=== PATIENT | female | born 1980 | race Caucasian/White ===

== ENCOUNTER 2025-01-03 19:21 | Inpatient (IN) | payer MEDICAID, SELFPAY ==
[2025-01-03] VITALS (9 sets, daily range): BP systolic 107–127; BP diastolic 64–81; PULSE 71–80; RESP 12–21; TEMP 36.3–37.1; O2SAT 97–99; BMI 22.6; BMI 23.4
--- NOTE | 2025-01-03 19:47 | EKG12_ITS ---
Test Reason : CP Blood Pressure : */* mmHG Vent. Rate : 67 BPM Atrial Rate : 67 BPM P-R Int : 138 ms QRS Dur : 86 ms QT Int : 392 ms P-R-T Axes : 9 24 63 degrees QTcB Int : 414 ms Normal sinus rhythm Septal infarct , age undetermined T wave abnormality, consider anterior ischemia Abnormal ECG Confirmed by Joshua Pizano ([id number]), deputy editor in chief CHAPARRO RIVERA ([id number]) on 01/04/2025 10:24:26 AM Referred By: Confirmed By: Joshua Pizano
[2025-01-03] MEDS: Nitroglycerin SL (ED/IMG/CATH) 0.4 MG TABLET SL ×2 (19:53→20:07)
--- NOTE | 2025-01-03 20:00 | EKG12_ITS ---
Test Reason : REPEAT Blood Pressure : */* mmHG Vent. Rate : 75 BPM Atrial Rate : 75 BPM P-R Int : 110 ms QRS Dur : 80 ms QT Int : 394 ms P-R-T Axes : 22 26 72 degrees QTcB Int : 439 ms Sinus rhythm with short IA Septal infarct , age undetermined T wave abnormality, consider anterior ischemia Abnormal ECG Confirmed by Joshua Pizano ([id number]), metropolitan editor CHAPARRO RIVERA ([id number]) on 01/04/2025 10:24:44 AM Referred By: Confirmed By: Joshua Pizano
[2025-01-03] MEDS: HEPARIN/D5w 25,000 UNITS 25,000 UNITS/250 ML IV.SOLN. 9.5 UNITS CONT INF (20:02)
[2025-01-03] MEDS: Heparin Injection (Vial) 5,000 UNIT/ML VIAL 4000 UNIT IV (20:06)
--- NOTE | 2025-01-03 20:18 | RAD_ITS ---
PROCEDURE: CHEST 1 VIEW (PORTABLE) 01/03/2025 REASON FOR EXAM: CHEST PAIN TECHNIQUE: Frontal view of the chest. COMPARISON: None FINDINGS: Left chest pacer. Mild pulmonary vascular congestion. No focal consolidation. No pleural effusion or pneumothorax. Cardiac silhouette is within normal limits. No acute fractures. RAD/Chest 1 View (Portable) IMPRESSION: Mild pulmonary vascular congestion. No focal consolidation. Reading Location: [id number]
[2025-01-03 20:26] LABS: Hematocrit 36.2 % (37-47); Hemoglobin 11.9 g/dL (12.0-15.0); Immature Granulocytes Count 0.020 X10^3/uL (0.0-0.0); Mean Corp Hgb Conc 32.9 g/dL (32-36); Mean Corpuscular Volume 87.7 fL (81-99); Mean Platelet Vol. 9.7 fl (6.2-12.0); NRBC Flagged by Analyzer 0 % (0-5); Platelet Count 351 K/mm3 (150-450); RBC Distribution Width CV 14.5 % (11.6-14.6); RBC Distribution Width SD 46.8 fl (35.1-43.9); Red Blood Count 4.13 M/mm3 (4.2-5.4); White Blood Count 7.4 K/mm3 (4.4-11.0)
[2025-01-03 20:34] LABS: Anion Gap 12 (5-15); BUN 8 mg/dL (4-19); BUN/Creat Ratio 10.6 RATIO (10-20); Calcium,Total 9.2 mg/dL (7.6-11.0); Carbon Dioxide 22.7 mmol/L (21.0-32.0); Chloride 104 mmol/L (98-108); Estimated Creatinine Clearance 93.67 ml/min (50-250); Glucose 87 mg/dL (70-99); Potassium 3.7 mmol/L (3.3-5.1); Troponin T High Sensitivity 7 ng/L (<=14)
[2025-01-03 20:35] LABS: Partial Thromboplast Time 24.1 Seconds (24.1-36.2); Prothrombin Time (Protime)PT. 13.1 SECONDS (11.7-14.9)
--- NOTE | 2025-01-03 21:53 | ED.VIS.CHEST ---
HPI History of Present Illness Chief Complaint: Chest Pain Detail of Chief Complaint: Chest pressure midsternum similar to TN Informant: patient Onset/Context/Timing Onset: Today and Hours Activity at onset: sudden and light activity Timing: Continuous Quality: Positive for Heaviness, Pressure and - (After nitroglycerin slightly dull sensation.) Location: Substernal Current Severity: Mild Maximum Severity: Severe Relieved By: NTG Associated Symptoms: Positive for Nausea, Diaphoresis and Dyspnea; Negative for Vomiting, Cough, Fever, Lightheadedness, Acid Reflux or Palpitations Narrative Narrative: Patient is a 44-year-old woman. She has history of myocardial infarction. First TN occurred several years ago when she resided in [place]. She had a stent placed proximal LAD. She had an TN this past May. She was seen at [facility]. She pleasantly resides in [place]. She was in town participating in the [employer]. She developed chest pressure with nausea, diaphoresis and shortness of breath. Paramedics were called. She states this is similar to when she had her TN in [place]. The nitro helped her pain markedly. She did not receive aspirin by EMS. When nurse offered aspirin to her that was ordered she informed the nurse that she received aspirin at the first-aid tent. As I was exiting the room she did follow-up pressure sensation again. Repeat EKG was obtained. Prehospital EKG reveals evidence of a prior anterior TN and flipped T waves inferiorly. There are no old EKGs for comparison. Patient is not compliant with her aspirin. She is taking Plavix. She denies black or maroon-colored stool. She denies bright red blood per rectum. She denies bruising easily. Patient informed that she has an ischemic cardiomyopathy requiring ACID. Prior Similar Symptoms: Yes and With Prior TN Recent Illness/Hospitalization: No CVD Risk Factors: Negative for Hypertension, Diabetes or Family History 1' </=55 PE Risk Factors: Positive for Recent Travel/Surgery; Negative for Recent Immobilization, Prior DVT or PE, Cancer or OCP + Smoking + >/=35 TAD Risk Factors: Negative for Marfan's Syndrome, Hypertension or Family History [facility] Medical History ICD (implantable cardioverter-defibrillator) in place Myocardial infarct Home Medications ?Medication ?Instructions ?Recorded ?Last Taken ?Type atorvastatin 40 mg tablet 40 mg PO DAILY 01/03/25 Unknown History clonazepam 0.5 mg disintegrating PO 01/03/25 Unknown History tablet clopidogrel 75 mg tablet 75 mg PO DAILY 01/03/25 Unknown History empagliflozin 10 mg tablet 10 mg PO DAILY 01/03/25 Unknown History (Jardiance) escitalopram oxalate 10 mg tablet 10 mg PO DAILY 01/03/25 Unknown History Allergy/AdvReac Type Severity Reaction Status Date / Time No Known Allergies Allergy Verified 01/03/25 19:26 Social History Smoking Status: Former smoker ROS ROS ED Constitutional Constitutional ED: Denies chills, fever(s), subjective or sweats Eyes Eyes: Reports none ENT ENT ED: Denies ear pain or rhinorrhea Cardiovascular Cardiovascular: Reports as per HPI; Denies orthopnea or paroxysmal nocturnal dyspnea Respiratory/Chest Respiratory/Chest: Reports dyspnea; Denies cough, dyspnea on exertion, orthopnea or paroxysmal nocturnal dyspnea Gastrointestinal Gastrointestinal: Reports nausea; Denies abdominal pain, diarrhea, melena or vomiting Musculoskeletal Musculoskeletal: Denies arthralgias, myalgias or neck pain Integumentary Denies rash Neurologic Neurologic: Denies headache(s) or paresthesias Psychiatric Psychiatric: Reports anxiety; Denies depression or suicidal ideation Endocrine Endocrinology: Denies cold intolerance or heat intolerance Hematologic/Lymphatic Hematologic/Lymphatic: Denies easy bleeding or easy bruising EXAM Physical Exam Const Vital Signs: 01/03/25 19:23 01/03/25 19:53 01/03/25 20:00 Temperature 98.7 F Temperature Source Oral Pulse Rate 80 73 71 Respiratory Rate 16 13 Respiratory Effort Blood Pressure 126/75 H 127/80 H 115/81 H Blood Pressure Mean 92 92 Pulse Ox 98 99 Oxygen Delivery Method Room Air 01/03/25 20:07 01/03/25 20:10 01/03/25 20:10 Temperature Temperature Source Pulse Rate 74 Respiratory Rate Respiratory Effort Normal Non-Labored Blood Pressure 115/81 H Blood Pressure Mean Pulse Ox Oxygen Delivery Method Room Air 01/03/25 21:00 Temperature Temperature Source Pulse Rate 71 Respiratory Rate 18 Respiratory Effort Blood Pressure 107/69 Blood Pressure Mean 81 Pulse Ox 99 Oxygen Delivery Method Positive well nourished and well developed General Appearance ED: well developed and NAD; Negative for pallor HEENT Reports moist mucous membranes normocephalic and atraumatic Eyes PERRL and EOMs intact bilaterally General Eye ED: Negative for pale conjunctiva or scleral icterus Neck no lymphadenopathy, supple and no JVD Resp normal respiratory effort and clear to auscultation bilaterally Cardio regular rate, regular rhythm, S1 normal heart sound, S2 normal heart sound and no murmurs Peripheral Pulses: pulses 2+ throughout GI normal to inspection, nondistended, normoactive bowel sounds, soft to palpation, non-tender, non-distended and no masses; Negative for hepatosplenomegaly Back/Spine no CVA tenderness and no thoracic nor lumbar tenderness Extremity normal to inspection General Extremety ED: Negative for edema or pulses abnormal General Extremity: Negative for edema or pulses abnormal Neuro oriented x3 and CN's II-XII intact bilaterally Sensorium / Orientation: awake and alert Psych mental status grossly normal Skin no rashes or lesions noted and no wounds General Skin Exam: Negative for jaundice or pallor Heart Score History: Moderately Suspicious ECG: Nonspecific Repolarization Age: >45 - <65 years Risk Factors: 1 or 2 Risk Factors Score: 4 MDM MDM MDM Narrative Medical decision making narrative: EKG that was obtained in the emergency department when patient pain had essentially resolved revealed a normal sinus rhythm rate of 67 with a prior septal/anterior TN. QRS duration is 86 ms. QT duration 292 ms. [place] is normal. T waves in the inferior leads are upright. Repeat EKG was obtained since patient developed chest pressure and was dyspneic. This is unchanged from the first. Lab Data Labs: Laboratory Results - last 24 hr 01/03/25 19:05 WBC 7.4 RBC 4.13 L Hgb 11.9 L Hct 36.2 L MCV 87.7 MCH 28.8 MCHC 32.9 RDW Std Deviation 46.8 H RDW Coeff of Woodrow 14.5 Plt Count 351 MPV 9.7 Immature Gran % (Auto) 0.300 Neut % (Auto) 53.8 Lymph % (Auto) 30.6 [place] % (Auto) 12.0 H Eos % (Auto) 2.6 Baso % (Auto) 0.7 Absolute Neuts (auto) 4.0 Absolute Lymphs (auto) 2.25 Nucleated RBC % 0 PT 13.1 INR 1.0 APTT 24.1 Sodium 138 Potassium 3.7 Chloride 104 Carbon Dioxide 22.7 Anion Gap 12 BUN 8 Creatinine 0.71 Estim Creat Clear Calc 93.67 Est GFR (MDRD) Non-Af 106 BUN/Creatinine Ratio 10.6 Glucose 87 Calcium 9.2 Troponin T High Sens 7 Radiography Chest X-Ray - ED: Read by ED Physician (Slight hyperaeration. Cardiac silhouette size normal. Some minimal chronic changes. No evidence of infiltrate or effusion. No evidence of pneumothorax. Hilum is unremarkable. Osseous structures are unremarkable.) Diagnostic Testing: Clinical Impression(s) from Imaging Studies Chest X-Ray 01/03/25 20:18 IMPRESSION: Mild pulmonary vascular congestion. No focal consolidation. Reading [id number] Management Discussion w/another healthcare provider: Hospitalist (Dr. Linwood Choudhury is presently seeing patient. Admit PCU) and Fish Farm Manager (Dr. Joshua Pizano was on. He agrees that she likely needs a cardiac catheterization. He requested 1 intra Nitropaste. Agrees with the heparin.) Treatment and Re-Evaluation :: In light of history of coronary disease with stent proximal LAD dynamic EKG changes with pain patient was anticoagulated with heparin. She received nitro for her recurrent chest pressure. Hospitalist was paged for admission. If hospitalist wishes for me to speak with silversmith apprentice I will. Comments:: Case was discussed Dr. Choudhury. He requested I speak with the silversmith apprentice. Cardiology was placed on page. Of note patient's pain essentially resolved with nitro that was administered in the emergency department. Discharge Plan Triage Chief Complaint: Chest Pain ED Provider: Jeremy Edwards Dx/Rx/DC Orders Clinical Impression: ACS (acute coronary syndrome), Ischemic cardiomyopathy, Implantable cardioverter-defibrillator (ICD) in situ Primary Care Provider: HA BURGESS Referrals: HA BURGESS [Other] Print Language: Upper Sorbian Disposition Disposition: Acute Care Hospital [facility]
--- NOTE | 2025-01-03 22:12 | PCM.HP.STD ---
HPI - General General Date of Admission: 01/03/25 Date of Service: 01/03/25 Chief Complaint: Chest pain HPI Narrative GALLO MORALES, is a 44 F who presents to the emergency room with chief complaint of chest pain. Onset of symptoms began approximately 30 minutes prior to arrival when she was working at the [facility] and developed chest pain and was transferred by squad to our facility. Patient has significant past medical history of coronary artery disease status post [place] x 2 in the last was in May which occurred in [place] and feels similar to how she is feeling now. Her first [place] required a stent of the LAD lesion which she states was almost 100% blocked. After her last heart attack in May she did not require further intervention after she had a catheterization done in [place]. Upon arrival her chest pain was relieved by nitroglycerin. Of note her EKG showed inverted T waves in lateral leads that were flipped back up after she received nitroglycerin. After the ER physician evaluated her she developed some subsequent chest pain while still in the emergency room and was given another dose of nitroglycerin to which she responded as well. Initial laboratory studies reveal white blood cell count of 7.4, hemoglobin 11.9, hematocrit 36.2, platelets 351, sodium 138, potassium 3.7, chloride 104, bicarb 22.7, BUN 8, creatinine 0.7, INR 1.0, troponin initial test was 7 and while EKG did show changes and T wave inversions there were no ST elevations. Patient quit smoking on her last [place] in May. Due to her significant cardiac history ER physician spoke with equal employment opportunity officer who recommended patient be prepared for heart catheterization. She will be admitted to the progressive care unit and she is full code. [facility] Medical History ICD (implantable cardioverter-defibrillator) in place Myocardial infarct Home Medications ?Medication ?Instructions ?Recorded ?Last Taken ?Type atorvastatin 40 mg tablet 40 mg PO DAILY 01/03/25 01/03/25 History clopidogrel 75 mg tablet 75 mg PO DAILY 01/03/25 01/03/25 History empagliflozin 10 mg tablet 10 mg PO DAILY 01/03/25 01/03/25 History (Jardiance) escitalopram oxalate 10 mg tablet 10 mg PO DAILY 01/03/25 01/03/25 History spironolactone 25 mg tablet 25 mg PO DAILY 01/03/25 01/03/25 History Allergy/AdvReac Type Severity Reaction Status Date / Time No Known Allergies Allergy Verified 01/03/25 19:26 Social History Smoking Status: Former smoker ROS Constitutional Constitutional: Reports night sweats; Denies chills or fever(s) Eyes Eyes: Denies blurry vision ENT HEENT: Denies abnormal hearing Cardiovascular Cardiovascular: Reports chest pain; Denies edema, palpitations or syncope Respiratory/Chest Respiratory/Chest: Denies cough Gastrointestinal Gastrointestinal: Denies abdominal pain Genitourinary Genitourinary: Denies dysuria Musculoskeletal Musculoskeletal: Denies back pain Integumentary Integumentary: Denies dry skin Neurologic Neurologic: Denies abnormal gait Psychiatric Psychiatric: Denies anxiety Vital Signs Vital Signs Vital Signs: 01/03/25 19:23 01/03/25 19:53 01/03/25 20:00 Temperature 98.7 F Temperature Source Oral Pulse Rate 80 73 71 Respiratory Rate 16 13 Respiratory Effort Blood Pressure 126/75 H 127/80 H 115/81 H Blood Pressure Mean 92 92 Pulse Ox 98 99 Oxygen Delivery Method Room Air 01/03/25 20:07 01/03/25 20:10 01/03/25 20:10 Temperature Temperature Source Pulse Rate 74 Respiratory Rate Respiratory Effort Normal Non-Labored Blood Pressure 115/81 H Blood Pressure Mean Pulse Ox Oxygen Delivery Method Room Air 01/03/25 21:00 01/03/25 21:45 01/03/25 22:00 Temperature Temperature Source Pulse Rate 71 73 79 Respiratory Rate 18 20 H 21 H Respiratory Effort Blood Pressure 107/69 108/70 121/67 H Blood Pressure Mean 81 83 85 Pulse Ox 99 98 98 Oxygen Delivery Method Weight Weight: 140 lb Body Mass Index (BMI) 22.6 Physical Exam Const oriented x3 General Appearance: cooperative and well developed HEENT normocephalic and head/scalp atraumatic Eyes PERRL Neck no lymphadenopathy Lymph Lymphatic: no lymphadenopathy noted Resp normal respiratory effort, normal air movement and clear to auscultation bilaterally Cardio regular rate, regular rhythm, S1 normal heart sound, S2 normal heart sound and no murmurs GI normal to inspection, nondistended, normoactive bowel sounds, soft to palpation and non-tender Extremity normal capillary refill Skin General Skin Exam: no breakdown Neuro no focal motor deficits and no sensory deficits noted Psych thought process normal Appearance: appropriate Results Lab / Micro Data 01/03/25 19:05 01/03/25 19:05 Labs: Laboratory Results - last 24 hr 01/03/25 19:05: WBC 7.4, RBC 4.13 L, Hgb 11.9 L, Hct 36.2 L, MCV 87.7, MCH 28.8, MCHC 32.9, RDW Std Deviation 46.8 H, RDW Coeff of Woodrow 14.5, Plt Count 351, MPV 9.7, Immature Gran % (Auto) 0.300, Neut % (Auto) 53.8, Lymph % (Auto) 30.6, [place] % (Auto) 12.0 H, Eos % (Auto) 2.6, Baso % (Auto) 0.7, Absolute Neuts (auto) 4.0, Absolute Lymphs (auto) 2.25, Nucleated RBC % 0, PT 13.1, INR 1.0, APTT 24.1, Sodium 138, Potassium 3.7, Chloride 104, Carbon Dioxide 22.7, Anion Gap 12, BUN 8, Creatinine 0.71, Estim Creat Clear Calc 93.67, Est GFR (MDRD) Non-Af 106, BUN/Creatinine Ratio 10.6, Glucose 87, Calcium 9.2, Troponin T High Sens 7 Imaging Radiology Impression Chest X-Ray 01/03/25 20:18 IMPRESSION: Mild pulmonary vascular congestion. No focal consolidation. Reading [id number] Assessment & Plan Assessment/Plan (1) Implantable cardioverter-defibrillator (ICD) in situ: (2) Ischemic cardiomyopathy: (3) ACS (acute coronary syndrome): PLAN: Plan 1 acute coronary syndrome?admit patient to progressive care unit, consult cardiology, prepare patient for possible heart catheterization in the morning continue cycling cardiac enzymes and repeat CBC BMP and coag panel in the a.m. patient will be made n.p.o. at midnight, will add nitroglycerin per routine protocol, oxygen as needed and patient already did receive aspirin earlier today. 2. DVT prophylaxis?SCDs for now 3. CODE STATUS full code verified Charges/Coding Visit Charges Inpatient E&M: 83530 Init Hosp L2
[2025-01-03 22:15] LABS: Troponin T High Sens 2 HR 6 ng/L (<=14)
[2025-01-03] MEDS: Nitroglycerin Oint 1 INCH PACKET TD (22:22)
--- NOTE | 2025-01-03 23:53 | EKG12_ITS ---
Test Reason : CP ADMISSION Blood Pressure : */* mmHG Vent. Rate : 71 BPM Atrial Rate : 71 BPM P-R Int : 128 ms QRS Dur : 92 ms QT Int : 380 ms P-R-T Axes : 30 50 55 degrees QTcB Int : 412 ms Normal sinus rhythm Septal infarct , age undetermined T wave abnormality, consider anterolateral ischemia Abnormal ECG When compared with ECG of 03-Jan-2025 19:50, MANUAL COMPARISON REQUIRED DATA IS UNCONFIRMED Confirmed by Joshua Pizano ([id number]), loan expeditor CHAPARRO RIVERA ([id number]) on 01/04/2025 10:16:58 AM Referred By: Confirmed By: Joshua Pizano
[2025-01-03 23:55] LABS: Troponin T High Sens 4 HR 6 ng/L (<=14)
[2025-01-04] MEDS: 0.9% Normal Saline (1000mL) 1,000 ML 15 ML IV (00:34)
[2025-01-04 03:36] VITALS: BP 112/73; PULSE 66; RESP 16; TEMP 36.7; O2SAT 97
[2025-01-04 05:52] LABS: Hematocrit 39.6 % (37-47); Hemoglobin 13.0 g/dL (12.0-15.0); Immature Granulocytes Count 0.020 X10^3/uL (0.0-0.0); Mean Corp Hgb Conc 32.8 g/dL (32-36); Mean Corpuscular Volume 88.0 fL (81-99); Mean Platelet Vol. 9.6 fl (6.2-12.0); NRBC Flagged by Analyzer 0 % (0-5); Platelet Count 335 K/mm3 (150-450); RBC Distribution Width CV 14.5 % (11.6-14.6); RBC Distribution Width SD 46.5 fl (35.1-43.9); Red Blood Count 4.50 M/mm3 (4.2-5.4); White Blood Count 7.4 K/mm3 (4.4-11.0)
--- NOTE | 2025-01-04 05:55 | EKG12_ITS ---
Test Reason : AM EKG Blood Pressure : */* mmHG Vent. Rate : 63 BPM Atrial Rate : 63 BPM P-R Int : 144 ms QRS Dur : 88 ms QT Int : 404 ms P-R-T Axes : 46 20 59 degrees QTcB Int : 413 ms Normal sinus rhythm Septal infarct , age undetermined T wave abnormality, consider anterior ischemia Abnormal ECG When compared with ECG of 03-Jan-2025 23:39, MANUAL COMPARISON REQUIRED DATA IS UNCONFIRMED Confirmed by Joshua Pizano ([id number]), newspaper or periodical editor CHAPARRO RIVERA ([id number]) on 01/04/2025 10:16:14 AM Referred By: Confirmed By: oJshua Pizano
[2025-01-04 05:56] LABS: Prothrombin Time (Protime)PT. 13.7 SECONDS (11.7-14.9)
[2025-01-04 06:29] LABS: Anion Gap 10 (5-15); BUN 8 mg/dL (4-19); BUN/Creat Ratio 11.4 RATIO (10-20); Calcium,Total 9.1 mg/dL (7.6-11.0); Carbon Dioxide 23.9 mmol/L (21.0-32.0); Chloride 107 mmol/L (98-108); Estimated Creatinine Clearance 93.67 ml/min (50-250); Glucose 96 mg/dL (70-99); Magnesium 2.3 mg/dL (1.5-2.2); Potassium 4.0 mmol/L (3.3-5.1)
[2025-01-04 08:11] VITALS: O2SAT 98
--- NOTE | 2025-01-04 08:11 | PCM.CONS.C ---
Assessment & Plan Assessment/Plan (1) Ischemic cardiomyopathy: PLAN: Patient has a history of ejection fraction in the 25-30% range. She does have an ICD in place. ECG shows normal sinus rhythm with nonspecific anterior T wave changes there is no significant bundle branch block. The patient denies any signs or symptoms of congestive heart failure she is functional class I-II [place] [employer] classification for heart failure. She denies any lower extremity edema PND orthopnea she denies any syncope or near syncope. She has had no therapies from her ICD device since implant. (2) Implantable cardioverter-defibrillator (ICD) in situ: PLAN: Device is monitored through [place] char puller. (3) Chest pain: QUALIFIERS: Chest pain type: unspecified Qualified Code(s): R07.9 - Chest pain, unspecified PLAN: Patient's chest discomfort described as a indigestion type feeling with a pressure that radiates toward her right shoulder. This is similar but not nearly as intense as her initial event when she had the LAD stent placed in the time of her anterior wall infarct. It is almost identical to the event she had in May in [place]. That event led to a catheterization in [place] which did not show any progression of disease in fact she says all of her vessels were open including the stented segment of the LAD. Troponins were -6, 7, 6 on this admission. ECG does not show any evolution of T waves. The initial inverted T waves in the inferior leads were due to a limb lead reversal. PLAN: Plan 1. Recommend stress echocardiogram to evaluate the patient's ischemic burden. 2. If stress echo does not show any significant ischemia would recommend discharge and follow-up with her primary char puller when she returns to [place]. 3. Please make sure a copy of this consult goes with her if she leaves the hospital to go back to [place]. HPI Consult Data Date of Consult: 01/04/25 HPI Narrative Reason for Consultation: Chest pain with known coronary artery disease. HPI Narrative: GALLO MORALES, is a 44 F who presents with approximately 2-hour history of chest discomfort described as a mild pressure and indigestion type feeling. She reports this is very similar to what she originally felt back at the time of her LAD occlusion and anterior wall infarct 2-3 years ago. This was treated with stenting of the LAD. In May of this year she was seen in [place] for similar symptoms and both today's symptoms and those symptoms in [place] were less intense than those when she originally presented with the LAD occlusion. In [place] she was told she had an infarct but yet the catheterization did not show any occlusions. The catheterization was actually not done in [place] she went home to [place] and had the catheterization done which is where her original stent was placed. The patient does have an ICD in place due to an LV ejection fraction estimated in the 25-30% range. The patient denies any therapies from her ICD device. It is a single-lead device. This is managed through her char puller in [place]. Since admission the patient's had no recurrence of her symptoms. Her ECG actually did not show evolving T wave changes the initial ECG done in the field the limb leads were reversed with inverted T waves in inferior leads subsequent all ECGs have been done here in the hospital show upright T waves with upright QRS's in the inferior leads. Her anterior T wave changes are chronic and do not evolve. Cardiac isoenzymes are negative x 3 sets at 6, 7, and 6. 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 The patient is amenable to doing a stress echocardiogram. [facility] Medical History ICD (implantable cardioverter-defibrillator) in place Myocardial infarct Home Medications ?Medication ?Instructions ?Recorded ?Last Taken ?Type atorvastatin 40 mg tablet 40 mg PO DAILY 01/03/25 01/03/25 History clopidogrel 75 mg tablet 75 mg PO DAILY 01/03/25 01/03/25 History empagliflozin 10 mg tablet 10 mg PO DAILY 01/03/25 01/03/25 History (Jardiance) escitalopram oxalate 10 mg tablet 10 mg PO DAILY 01/03/25 01/03/25 History spironolactone 25 mg tablet 25 mg PO DAILY 01/03/25 01/03/25 History Allergy/AdvReac Type Severity Reaction Status Date / Time No Known Allergies Allergy Verified 01/03/25 19:26 Social History Smoking Status: Former smoker ROS Constitutional Constitutional: Reports as per HPI Eyes Eyes: Reports systems reviewed and no addt'l complaints, except as documented ENT HEENT: Reports systems reviewed and no addt'l complaints, except as documented Cardiovascular Cardiovascular: Reports as per HPI Respiratory/Chest Respiratory/Chest: Reports as per HPI Gastrointestinal Gastrointestinal: Reports as per HPI Genitourinary Genitourinary: Reports systems reviewed and no addt'l complaints, except as documented Musculoskeletal Musculoskeletal: Reports systems reviewed and no addt'l complaints, except as documented Integumentary Integumentary: Reports systems reviewed and no addt'l complaints, except as documented Neurologic Neurologic: Reports systems reviewed and no addt'l complaints, except as documented Psychiatric Psychiatric: Reports systems reviewed and no addt'l complaints, except as documented Endocrine Endocrinology: Reports systems reviewed and no addt'l complaints, except as documented Hematologic/Lymphatic Hematologic/Lymphatic: Reports systems reviewed and no addt'l complaints, except as documented Allergic/Immunologic Allergic/Immunologic: Reports systems reviewed and no addt'l complaints, except as documented Physical Exam Const alert and oriented x3 HEENT normocephalic Eyes EOMs intact bilaterally Neck no JVD and no carotid bruits Chest Chest: left pectoral incision Resp normal respiratory effort and clear to auscultation bilaterally Cardio Rate: regular rate Rhythm: regular rhythm Heart Sounds: S1 normal and S2 normal; Negative for click, gallop or murmur Extremity no pedal edema Neuro Neuro Narrative: Alert and oriented x 3 Psych Psych Narrative: Patient with mildly pressured speech. Charges/Coding Visit Charges Inpatient E&M: 23788 Init Hosp L3 Objective Data Vital Signs: Vital Signs Temp Pulse Resp BP Pulse Ox O2 Del Method 98.1 F 66 16 112/73 97 Room Air 01/04/25 03:36 01/04/25 03:36 01/04/25 03:36 01/04/25 03:36 01/04/25 03:36 01/04/25 03:36 Oxygen Delivery Method Room Air Weight: 145 lb 4.554 oz Body Mass Index (BMI) 23.4 Lab / Micro Data Attestation: I reviewed the patient's lab results. 01/04/25 05:15 01/04/25 05:15 Labs: Laboratory Results - last 24 hr 01/03/25 19:05: WBC 7.4, RBC 4.13 L, Hgb 11.9 L, Hct 36.2 L, MCV 87.7, MCH 28.8, MCHC 32.9, RDW Std Deviation 46.8 H, RDW Coeff of Woodrow 14.5, Plt Count 351, MPV 9.7, Immature Gran % (Auto) 0.300, Neut % (Auto) 53.8, Lymph % (Auto) 30.6, Bowie % (Auto) 12.0 H, Eos % (Auto) 2.6, Baso % (Auto) 0.7, Absolute Neuts (auto) 4.0, Absolute Lymphs (auto) 2.25, Nucleated RBC % 0, PT 13.1, INR 1.0, APTT 24.1, Sodium 138, Potassium 3.7, Chloride 104, Carbon Dioxide 22.7, Anion Gap 12, BUN 8, Creatinine 0.71, Estim Creat Clear Calc 93.67, Est GFR (MDRD) Non-Af 106, BUN/Creatinine Ratio 10.6, Glucose 87, Calcium 9.2, Troponin T High Sens 7 01/03/25 21:20: Troponin T Hi Sens 2 Hr 6 01/03/25 23:21: Troponin T Hi Sens 4Hr 6 01/04/25 05:15: WBC 7.4, RBC 4.50, Hgb 13.0, Hct 39.6, MCV 88.0, MCH 28.9, MCHC 32.8, RDW Std Deviation 46.5 H, RDW Coeff of Woodrow 14.5, Plt Count 335, MPV 9.6, Immature Gran % (Auto) 0.300, Neut % (Auto) 44.4 L, Lymph % (Auto) 39.2, Bowie % (Auto) 11.0 H, Eos % (Auto) 3.9, Baso % (Auto) 1.2 H, Absolute Neuts (auto) 3.3, Absolute Lymphs (auto) 2.89, Nucleated RBC % 0, PT 13.7, INR 1.0, Sodium 141, Potassium 4.0, Chloride 107, Carbon Dioxide 23.9, Anion Gap 10, BUN 8, Creatinine 0.71, Estim Creat Clear Calc 93.67, Est GFR (MDRD) Non-Af 106, BUN/Creatinine Ratio 11.4, Glucose 96, Calcium 9.1, Phosphorus 3.2, Magnesium 2.3 H Rhythm Strip Rhythm Strip: Sinus Rhythm Rate: 65 Cardiology Labs/Tests 01/03/25 19:05: WBC 7.4, RBC 4.13 L, Hgb 11.9 L, Hct 36.2 L, MCV 87.7, MCH 28.8, MCHC 32.9, Plt Count 351, MPV 9.7, Immature Gran % (Auto) 0.300, Neut % (Auto) 53.8, Lymph % (Auto) 30.6, Bowie % (Auto) 12.0 H, Eos % (Auto) 2.6, Baso % (Auto) 0.7, Absolute Neuts (auto) 4.0, Nucleated RBC % 0, PT 13.1, INR 1.0, APTT 24.1, Sodium 138, Potassium 3.7, Chloride 104, Carbon Dioxide 22.7, Anion Gap 12, BUN 8, Creatinine 0.71, Est GFR (MDRD) Non-Af 106, BUN/Creatinine Ratio 10.6, Glucose 87, Calcium 9.2 01/04/25 05:15: WBC 7.4, RBC 4.50, Hgb 13.0, Hct 39.6, MCV 88.0, MCH 28.9, MCHC 32.8, Plt Count 335, MPV 9.6, Immature Gran % (Auto) 0.300, Neut % (Auto) 44.4 L, Lymph % (Auto) 39.2, Bowie % (Auto) 11.0 H, Eos % (Auto) 3.9, Baso % (Auto) 1.2 H, Absolute Neuts (auto) 3.3, Nucleated RBC % 0, PT 13.7, INR 1.0, Sodium 141, Potassium 4.0, Chloride 107, Carbon Dioxide 23.9, Anion Gap 10, BUN 8, Creatinine 0.71, Est GFR (MDRD) Non-Af 106, BUN/Creatinine Ratio 11.4, Glucose 96, Calcium 9.1, Phosphorus 3.2, Magnesium 2.3 H Rhythm: EKG: ECHO: Stress Test: Cardiac Cath: PCI: CT Surgery: Holter monitor: EPS: PPM: CXR: Chest CT Scan: Radiography Diagnostic Testing: Radiology Impression Chest X-Ray 01/03/25 20:18 IMPRESSION: Mild pulmonary vascular congestion. No focal consolidation. Reading [id number] Z[facility]AIDA Risk Score for UA/STEMI Assesmment (YES = 1) Risk Stratification Applicable: Yes Age > or = 65: No > or = 3 CAD risk factors (HTN, Hypercholesterolemia, Diabetes, family hx, current smoker): No Known CAD (Stenosis > or = 50%): Yes ASA used in past 7 days: No Severe angina (> or = 2 episodes in 24 hrs): Yes EKG ST change > or = 0.5mm: No Positive cardiac markers: No Score ZORAIDA Risk Score of mortality/ recurrent ischemic event over the next 14 days: 2 = 8.3% - Low Risk
--- NOTE | 2025-01-04 08:22 | STEWCON_ITS ---
Reason For Study Reason For Study: CHEST PAIN Stress Results Protocol: Ben Protocol WITH DEFINITY Maximum Predicted HR: 175 bpm Target HR: 149 bpm % Maximum Predicted HR: 89 % DurationHeart Rate Stage (mm:ss) (bpm) BP Comment BASELINE 64 100/743CC DEFINITY STAGE 1 3:00 102 120/80 STAGE 2 3:00 115 118/80 STAGE 3 2:00 155 / RECOVERY 82 118/70 Stress Duration: 8:00 mm:ss Maximum Stress HR: 155 bpm Baseline Echocardiogram Findings Severe LV systolic dysfunction. Moderately dilated left ventricular cavity. Estimated LVEF 20-25%. ICD or pacer leads identified within the right ventricle. Stress Echo Wall motion Data Resting WM Intermediate WM Stress WM Resting Wall Motion Wall Motion Stress Severe LV systolic dysfunction. Mid to distal anterior akinesis. Apical Generalized hypokinesis with severe akinesis. anterior apical hypokinesis. EKG Data Sinus rhythm with poor R wave progression across anterior precordial leads suggestive of previous infarct. No ischemic ECG changes noted. MMode/2D Measurements & Calculations LVIDd: 6.3 cm EDV(MOD-sp4): 170.7 ml SV(MOD-sp4): 64.6 ml ESV(MOD-sp4): 106.2 ml EF(MOD-sp4): 37.8 % ECHO/Stress Test Echo W/Contrast Interpretation Summary Good exercise tolerance. Walked 8 minutes on the treadmill according to the Bru ce protocol. No ischemic ECG changes noted. Severe LV systolic dysfunction at rest. Worsening of the mid to distal anterior wall and apex post exercise, suggestive of ischemia. Ordering Physician: oJshua Pizano Referring Physician: JOSHUA PIZANO Performed By: Hayley Mills, VALENTINA, RVT
[2025-01-04 08:31] VITALS: BP 114/76; PULSE 66; RESP 14; TEMP 37.1; O2SAT 99
[2025-01-04 08:49] VITALS: O2SAT 99
[2025-01-04 09:29] LABS: Partial Thromboplast Time 75.3 Seconds (24.1-36.2)
--- NOTE | 2025-01-04 10:11 | CASEMGMT ---
Dx: Acute coronary syndrome LACE: 1 6-Clicks: 24 Medical record reviewed and patient evaluated for identification of discharge planning needs. Based on this review, at this time criteria are not present to indicate a need for discharge planning. Will remain available to assist with discharge planning needs as identified or requested.
[2025-01-04 12:17] VITALS: BP 119/69; PULSE 73; RESP 16; TEMP 36.3; O2SAT 98
--- NOTE | 2025-01-04 15:23 | DCINST_ITS ---
Discharge Instructions DC O2, CPAP, BIPAP needs Home O2 Discharge instructions: No Dressing / Incision Call your doctor if you observe: Fever of 101 or Higher, Shortness of breath, Dizziness, Fainting spells, Swelling in the ankles, Chest pain and Increased palpitations (irregular heartbeat) Follow Up Care Test Results: Test results from this visit will be discussed in further detail at your follow- up appointment, if applicable. Discharge Plan Admission Admit Date/Time: 01/03/25 22:20 Attending Provider: Cole Cloud Primary Care Provider: HA BURGESS Consulting Providers: Joshua Pizano; Linwood Choudhury Discharge Orders/Prescriptions Prescriptions: Continued atorvastatin 40 mg tablet 40 mg PO DAILY clopidogrel 75 mg tablet 75 mg PO DAILY escitalopram oxalate 10 mg tablet 10 mg PO DAILY Jardiance 10 mg tablet 10 mg PO DAILY spironolactone 25 mg tablet 25 mg PO DAILY Referrals / Follow Up: HA BURGESS [Other] HA BURGESS [Other] Disposition Disposition (needs filled in before D/C Order can be placed): Home, Self Care
[2025-01-04 15:24] VITALS: BP 119/69; PULSE 73; RESP 16; TEMP 36.3; O2SAT 98
--- NOTE | 2025-01-04 15:30 | PHA.DC.MR.R ---
Pharmacy [place] Med Reconciliation Pharmacy Service has performed discharge medication reconciliation for this patient. The patient's discharge medication list was reviewed for discrepancies and discrepancies were resolved. Medications at Discharge Home Medications atorvastatin 40 mg tablet 40 mg PO DAILY 01/03/25 clopidogrel 75 mg tablet 75 mg PO DAILY 01/03/25 empagliflozin 10 mg tablet (Jardiance) 10 mg PO DAILY 01/03/25 escitalopram oxalate 10 mg tablet 10 mg PO DAILY 01/03/25 spironolactone 25 mg tablet 25 mg PO DAILY 01/03/25
--- NOTE | 2025-01-04 16:21 | DS.PCM_ITS ---
Providers Date of Admission: 01/03/25 Primary Care Physician: HA BURGESS Consultations 01/03/25 23:04 Consult: Cardiology Routine Consulting Provider: Joshua Pizano Reason for Consult: Acute coronary syndrome EMERGENT Consult: Yes MD Notified: Yes Date Notified: 01/03/25 Time Notified: 22:22 Method of Notification: ED Physician Initiated Reason For Visit: ACUTE CORONARY SYNDROME Diagnosis Discharge Diagnosis (1) Ischemic cardiomyopathy: Status: Acute Code(s): I25.5 - Ischemic cardiomyopathy (2) Implantable cardioverter-defibrillator (ICD) in situ: Status: Acute Code(s): Z95.810 - Presence of automatic (implantable) cardiac defibrillator (3) Chest pain: Status: Acute Code(s): R07.9 - Chest pain, unspecified Medications at Discharge Home Medications atorvastatin 40 mg tablet 40 mg PO DAILY 01/03/25 clopidogrel 75 mg tablet 75 mg PO DAILY 01/03/25 empagliflozin 10 mg tablet (Jardiance) 10 mg PO DAILY 01/03/25 escitalopram oxalate 10 mg tablet 10 mg PO DAILY 01/03/25 spironolactone 25 mg tablet 25 mg PO DAILY 01/03/25 Hospital Course Operations None Procedures Stress test Summary of Care Provided Minutes Spent on Discharge: 39 Hospital Course: Per HPI: GALLO MORALES, is a 44 F who presents to the emergency room with chief complaint of chest pain. Onset of symptoms began approximately 30 minutes prior to arrival when she was working at the [employer] and developed chest pain and was transferred by squad to our facility. Patient has significant past medical history of coronary artery disease status post [place] x 2 in the last was in May which occurred in [place] and feels similar to how she is feeling now. Her first [place] required a stent of the LAD lesion which she states was almost 100% blocked. After her last heart attack in May she did not require further intervention after she had a catheterization done in [place]. Upon arrival her chest pain was relieved by nitroglycerin. Of note her EKG showed inverted T waves in lateral leads that were flipped back up after she received nitroglycerin. After the ER physician evaluated her she developed some subsequent chest pain while still in the emergency room and was given another dose of nitroglycerin to which she responded as well. Initial laboratory studies reveal white blood cell count of 7.4, hemoglobin 11.9, hematocrit 36.2, platelets 351, sodium 138, potassium 3.7, chloride 104, bicarb 22.7, BUN 8, creatinine 0.7, INR 1.0, troponin initial test was 7 and while EKG did show changes and T wave inversions there were no ST elevations. Patient quit smoking on her last [place] in May. Due to her significant cardiac history ER physician spoke with corporate recycling manager who recommended patient be prepared for heart catheterization. She will be admitted to the progressive care unit and she is full code. Hospital Course: 1. Chest pain in the setting of chronic systolic CHF with an ICD?44-year-old female who works at the [employer] presented to the hospital with chest pain. She has an extensive past cardiac history with an [place] leading to reduced ejection fraction and needing an ICD placed. She had a stress test done today that showed a reduced ejection fraction of 20 to 25% with apical wall motion abnormalities during the stress. Per cardiology this actually appears close to her baseline and they recommended no further medication changes. She states that her chest pain has resolved. 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 She states that she has been trialed on metoprolol and lisinopril however it led to symptomatic hypotension and therefore she was removed from it. I discussed with her the plan for discharge today and she expressed understanding the risks and benefits of going home and would like to go home today. She will continue with her current medications without any changes being made at this time. Physical Exam Narrative General: Alert, Oriented x3, Cooperative, No apparent distress HEENT: Atraumatic, PERRLA, EOMI, Normocephalic Oral: Moist Mucosa Neck: Supple, No JVD Lungs: Clear to auscultation, Normal air movement, No rhonchi, No wheeze, No rales Cardiovascular: Regular rate, Regular Rhythm, Normal S1, Normal S2, No murmurs Abdomen: Soft, Non Tender, Non-Distended, No Hepato-splenomegaly Extremities: No edema, Capillary Refill Less than 3 Seconds Skin: No rashes, No breakdown Musculoskeletal: No Tenderness to Palpation of Joints or Extremities Neurological: No focal neurological deficits, Motor Exam 5/5 strength throughout, Sensory exam intact to light touch and pain Psych/Mental Status: Normal Affect, Appropriate Weight / BMI Weight Weight: 145 lb 4.554 oz Body Mass Index (BMI) 23.4 ABG / Lab / Microbiology Data 01/04/25 05:15 01/04/25 05:15 Laboratory: Laboratory Results - last 24 hr 01/03/25 19:05: WBC 7.4, RBC 4.13 L, Hgb 11.9 L, Hct 36.2 L, MCV 87.7, MCH 28.8, MCHC 32.9, RDW Std Deviation 46.8 H, RDW Coeff of Woodrow 14.5, Plt Count 351, MPV 9.7, Immature Gran % (Auto) 0.300, Neut % (Auto) 53.8, Lymph % (Auto) 30.6, [place] % (Auto) 12.0 H, Eos % (Auto) 2.6, Baso % (Auto) 0.7, Absolute Neuts (auto) 4.0, Absolute Lymphs (auto) 2.25, Nucleated RBC % 0, PT 13.1, INR 1.0, APTT 24.1, Sodium 138, Potassium 3.7, Chloride 104, Carbon Dioxide 22.7, Anion Gap 12, BUN 8, Creatinine 0.71, Estim Creat Clear Calc 93.67, Est GFR (MDRD) Non-Af 106, BUN/Creatinine Ratio 10.6, Glucose 87, Calcium 9.2, Troponin T High Sens 7 01/03/25 21:20: Troponin T Hi Sens 2 Hr 6 01/03/25 23:21: Troponin T Hi Sens 4Hr 6 01/04/25 05:15: WBC 7.4, RBC 4.50, Hgb 13.0, Hct 39.6, MCV 88.0, MCH 28.9, MCHC 32.8, RDW Std Deviation 46.5 H, RDW Coeff of Woodrow 14.5, Plt Count 335, MPV 9.6, Immature Gran % (Auto) 0.300, Neut % (Auto) 44.4 L, Lymph % (Auto) 39.2, [place] % (Auto) 11.0 H, Eos % (Auto) 3.9, Baso % (Auto) 1.2 H, Absolute Neuts (auto) 3.3, Absolute Lymphs (auto) 2.89, Nucleated RBC % 0, PT 13.7, INR 1.0, APTT 75.3 H, Sodium 141, Potassium 4.0, Chloride 107, Carbon Dioxide 23.9, Anion Gap 10, BUN 8, Creatinine 0.71, Estim Creat Clear Calc 93.67, Est GFR (MDRD) Non-Af 106, BUN/Creatinine Ratio 11.4, Glucose 96, Calcium 9.1, Phosphorus 3.2, Magnesium 2.3 H Radiography Diagnostic Testing: Radiology Impression Chest X-Ray 01/03/25 20:18 IMPRESSION: Mild pulmonary vascular congestion. No focal consolidation. Reading [id number] Stress Echocardiogram 01/04/25 08:22 Interpretation Summary Good exercise tolerance. Walked 8 minutes on the treadmill according to the Ben protocol. No ischemic ECG changes noted. Severe LV systolic dysfunction at rest. Worsening of the mid to distal anterior wall and apex post exercise, suggestive of ischemia. Ordering Physician: Joshua Pizano Referring Physician: JOSHUA PIZANO Performed By: Hayley Mills RDCS, RVT D/C Instructions Call your doctor if you observe: Fever of 101 or Higher, Shortness of breath, Dizziness, Fainting spells, Swelling in the ankles, Chest pain and Increased palpitations (irregular heartbeat) DC O2, CPAP, BIPAP Needs Home O2 Discharge instructions: No Meaningful Use Info Meaningful Use Meaningful Use Diagnoses (Choose all that apply): None applicable Discharge Plan Admission Admit Date/Time: 01/03/25 22:20 Attending Provider: Cole Cloud Primary Care Provider: HA BURGESS Consulting Providers: Joshua Pizano; Linwood Choudhury Discharge Orders/Prescriptions Prescriptions: Continued atorvastatin 40 mg tablet 40 mg PO DAILY clopidogrel 75 mg tablet 75 mg PO DAILY escitalopram oxalate 10 mg tablet 10 mg PO DAILY Jardiance 10 mg tablet 10 mg PO DAILY spironolactone 25 mg tablet 25 mg PO DAILY Referrals / Follow Up: HA BURGESS [Other] HA BURGESS [Other] Disposition Disposition (needs filled in before D/C Order can be placed): Home, Self Care Charges/Coding Visit Charges Inpatient E&M: 11705 Disch Hosp >30min
== END 2025-01-04 16:01 | disposition home or self-care (01) | DRG 194 ==
LOC: ED 22:05 → PCU 22:32
PROVIDERS: Admitting Provider Family Medicine; Emergency Provider Emergency Medicine; Visit Provider Family Medicine
DX: I50.22 Chronic systolic (congestive) heart failure (principal); I25.10 Atherosclerotic heart disease of native coronary artery without angina pectoris; I25.5 Ischemic cardiomyopathy; I25.2 Old myocardial infarction; Z95.5 Presence of coronary angioplasty implant and graft; Z79.02 Long term (current) use of antithrombotics/antiplatelets; Z79.82 Long term (current) use of aspirin; Z91.148 Patient's other noncompliance with medication regimen for other reason; Z79.899 Other long term (current) drug therapy; Z95.810 Presence of automatic (implantable) cardiac defibrillator; Z87.891 Personal history of nicotine dependence
CPT/HCPCS: 36415; 71045; 80048; 83735; 84100; 84484; 85025; 85610; 85730; 93005; 93017; 93350; 99285; Q9957; A4216; C8928